=== PATIENT | male | born 1960 | race African-American/Black ===

== ENCOUNTER 2017-01-30 11:03 | Emergency (ER) | payer OTHER ==
--- NOTE | ~2017-01-30 | CT16 ---
[facility] A Service of [facility] RADIOLOGY TEXT RESULTS PATIENT: KAR LICONA LOCATION: [facility] : 58 UNIT #: [id number] AGE: [address]: ANNETTA CRUMP SEX: M ORDER DR: [id number] [facility] [address] [place], [place] [address] [id number] E MR#: [id number] Acc #: [id number] NAME: KAR LICONA : 1960 SEX: M STUDY DATE/TIME: 01/30/2017 12:06 UNIT: [facility] ROOM: STUDY DESCRIPTION: CT Angio Chest for PE Attending Physician: Annetta Crump Aprn Ordering Physician: Haris Hair M.D. Primary Care Physician: Serafin Posada M.D. MEDICAL IMAGING REPORT This report is preliminary unless electronic signature is present EXAM CT angio of the chest INDICATION Intermittent chest pain since 01/28/2017. TECHNIQUE Axial CT images were obtained from thoracic of the diaphragm following the administration of intravenous contrast material. Following this, 3D reformatted images were obtained. This CT exam was performed with one or more of the following radiation dose reduction techniques: automatic exposure control, adjustment of mA and/or kV according to patient size, and iterative reconstruction. FINDINGS No acute pulmonary thromboembolus is seen. 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 Measures 3.2 cm and distal descending thoracic aorta measures about 3.0 cm. It is stable when compared to prior study and there is no evidence of dissection. 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 Again, this is favored to be not significantly changed when compared to the exam from August of 2015. The thyroid gland, trachea, and esophagus appear within normal limits. There is some trace pericardial fluid. No pleural effusions are seen. Patient has some tree-in-bud infiltrates in both lungs. Which actually are probably not significantly changed when compared to August pleural fluid 2014. No new noncalcified pulmonary nodules or masses are identified. Mediastinal lymph nodes do not appear pathologically enlarged. I do not see any acute lung is within the upper abdomen. Review of bony windows does not demonstrate any aggressive osseous abnormalities. [facility]. [facility] A Service of [facility] RADIOLOGY TEXT RESULTS PATIENT: KAR LICONA LOCATION: [facility] : 58 UNIT #: [id number] AGE: [address]: ANNETTA CRUMP SEX: M ORDER DR: IMPRESSION 1. No acute pulmonary thromboembolus seen. 2. Thoracic aorta does show aneurysmal dilatation with the proximal descending thoracic aorta measuring up to 3.7 cm and the aortic root measuring up to 4.2 cm. This is stable when compared to August of 2015. I do not see any evidence of dissection. 3. Scattered tree-in-bud infiltrates seen throughout both lungs unchanged when compared to August of 2015. No new infiltrates are seen. Dictated by... Cherise Waters M.D. THIS IS AN ELECTRONICALLY VERIFIED REPORT Cherise Waters M.D. at 01/30/2017 5:07 PM AFF/aa TD: 01/30/2017 14:21 JOB #: [id number] MEDICAL IMAGING REPORT Page 1 of 1 COPY
--- NOTE | ~2017-01-30 | CR63 ---
[facility] A Service of [facility] RADIOLOGY TEXT RESULTS PATIENT: KAR LICONA LOCATION: [facility] : 58 UNIT #: [id number] AGE: [address]: ANNETTA CRUMP SEX: M ORDER DR: [id number] [place] [id number] [facility] [place], [place] [address] [id number] E MR#: [id number] Acc #: [id number] NAME: KAR LICONA : 1960 SEX: M STUDY DATE/TIME: 01/30/2017 10:40 UNIT: [facility] ROOM: STUDY DESCRIPTION: CR Chest 2 View Attending Physician: Annetta Crump Aprn Ordering Physician: Ed Blair Vela M.D. Primary Care Physician: Serafin Posada M.D. MEDICAL IMAGING REPORT This report is preliminary unless electronic signature is present EXAM PA and lateral chest. DATE 01/30/2017 HISTORY Chest pain, abdominal pain with nausea and vomiting and shortness of breath since Monday. Additional history of hypertension. COMPARISON PA and lateral chest, 02/12/2016. FINDINGS No acute airspace disease. Stable mild asymmetric elevation of the right diaphragm, unchanged. Heart size within normal limits. Pulmonary vascular distribution within normal limits. No pleural effusion or pneumothorax. No acute osseous abnormalities are identified. IMPRESSION No acute chest findings. No significant change compared to 02/12/2016. Dictated by... Velvet Harrison M.D. THIS IS AN ELECTRONICALLY VERIFIED REPORT Velvet Harrison M.D. at 01/31/2017 8:33 AM KAYLA/kike TD: 01/30/2017 12:42 JOB #: [id number] [facility] A Service of [facility] RADIOLOGY TEXT RESULTS PATIENT: KAR LICONA LOCATION: [facility] : 58 UNIT #: [id number] AGE: [address]: ANNETTA CRUMP SEX: M ORDER DR: MEDICAL IMAGING REPORT Page 1 of 1 COPY
--- NOTE | ~2017-01-30 | EKG ---
PATIENT: KAR LICONA UNIT #: [id number] Ventricular Rate: 86 BPM Atrial Rate: 86 BPM P-R Interval: 180 ms QRS Duration: 86 ms Q-T Interval: 366 ms QTC Calculation(Bezet): 437 ms P Troup: 8 degrees Calculated R Troup: -141 degrees Calculated T Troup: 5 degrees Diagnosis Line: Normal sinus rhythm Diagnosis Line: Indeterminate axis Diagnosis Line: Inferior infarct , age undetermined Diagnosis Line: Abnormal ECG Diagnosis Line: When compared with ECG of 12-FEB-2016 11:06, Diagnosis Line: No significant change was found Diagnosis Line: Confirmed by CAREN WILKINS MD ([id number]) on 01/30/2017 Diagnosis Line: 11:02:03 PM INTERPRETING MD: FRANKY HUMPHRIES
[2017-01-30 10:08] LABS: POC - CKMB 2.4 ng/mL (0.0-7.9); POC - TROPONIN <0.05 ng/mL (<=0.05)
[2017-01-30 10:27] LABS: BASOPHIL# 0.1 X10e3 (0-0.3); BASOPHIL% 0.5 % (0-2.5); EOSINOPHIL% 0.4 % (0.0-7.0); HEMATOCRIT 41.3 % (38.0-50.0); HEMOGLOBIN 13.8 gm/dL (13.0-16.0); LYMPHOCYTE# 2.5 X10e3 (1.0-3.5); LYMPHOCYTE% 20.6 % (17.0-45.0); MEAN CELL VOLUME 90.5 FL (83-96); MEAN CORPUSCULAR HEMOGLOBIN 30.3 PG (28-34); MEAN CORPUSCULAR HGB CONC 33.5 g/dL (30-36); MONOCYTE# 0.7 X10e3 (0-1.0); MONOCYTE% 5.8 % (3.0-12.0); NEUTROPHIL# 8.7 X10e3 (1.5-7.1); NEUTROPHIL% 72.7 % (40-75); PLATELET COUNT 269 X10e3 (140-420); RED BLOOD COUNT 4.57 X10e (3.90-5.60); RED CELL DISTRIBUTION WIDTH 14.4 % (11.0-15.5)
[2017-01-30 10:28] LABS: DIFF IND NO
[2017-01-30 10:45] LABS: INR 1.1; PARTIAL THROMBOPLASTIN TIME 32.2 SECONDS (23.5-31.3); PROTHROMBIN TIME (PATIENT) 12.1 SECONDS (9.6-11.5)
[2017-01-30 11:02] LABS: BILIRUBIN,TOTAL 0.7 mg/dL (0.2-2.0); BUN/CREATININE RATIO 14.28; CALCIUM SERUM 9.5 mg/dL (8.4-10.2); CREATININE SERUM 1.4 mg/dL (0.6-1.4); GLOM FILT RATE Estimated 64.2 mL/min (>60); POTASSIUM 3.2 mmol/L (3.5-5.1); PROTEIN TOTAL SERUM 8.2 g/dL (6.0-8.3)
[~2017-01-30 11:03] MED LIST: ALEVE PO; ATENOLOL25 MG PO; BACLOFEN10 MG PO; CARVEDILOL3.125 MG PO; COUMADIN5 MG PO; COUMADIN7.5 MG PO; HYDROCODON-ACE1 EAC9 PO; KETOPROFEN PO; LISINOPRIL-HCTZ1 T14 PO; LISINOPRIL10 MG PO; LISINOPRIL20 MG PO; MILK OF MAGNESIA PO; MOBIC15 MG PO; NORVASC10 MG PO; TRAMADOL HCL50 M1 PO; TYLENOL #3 PO; TYLENOL325 M1 PO
[2017-01-30 12:17] LABS: POC - CKMB 1.4 ng/mL (0.0-7.9); POC - TROPONIN <0.05 ng/mL (<=0.05)
== END 2017-01-30 13:53 | disposition home or self-care (01) ==
LOC: CED 11:03
PROVIDERS: Nurse Practitioner Family
DX: R09.1 Pleurisy (principal); I10 Essential (primary) hypertension; E78.5 Hyperlipidemia, unspecified; Z98.890 Other specified postprocedural states; Z79.899 Other long term (current) drug therapy
CPT/HCPCS: 36415; 71020; 71275; 80053; 82553; 83690; 84484; 85025; 85379; 85610; 85730; 93005; 96374; 96375; 99284; J2270; J2405; Q9967

== ENCOUNTER 2017-02-02 21:30 | Emergency (ER) | payer OTHER ==
--- NOTE | ~2017-02-02 | CT2 ---
[facility] A Service of [facility] & [facility] RADIOLOGY TEXT RESULTS PATIENT: KAR LICONA LOCATION: [facility] : 58 UNIT #: [id number] AGE: [address]: Misael Frank MD SEX: M ORDER DR: [id number] [facility] [address] [place], [place] [address] [id number] E MR#: [id number] Acc #: [id number] NAME: KAR LICONA : 1960 SEX: M STUDY DATE/TIME: 02/02/2017 22:32 UNIT: [facility] ROOM: STUDY DESCRIPTION: CT Abd and Pelv W Cont Attending Physician: Misael Frank M.D. Ordering Physician: Misael Frank M.D. Primary Care Physician: Serafin Posada M.D. MEDICAL IMAGING REPORT This report is preliminary unless electronic signature is present EXAM Abdomen and pelvis CT, 02/02 at 22:32 INDICATIONS Constipation for 1 week with associated diffuse abdominal pain which rates 4/10. TECHNIQUE Axial images were obtained through the abdomen and pelvis following IV contrast administration. Multiplanar reformats were obtained. This CT exam was performed with one or more of the following radiation dose reduction techniques: Automatic exposure control, adjustment of mA and/or kV according to patient size, and iterative reconstruction. FINDINGS ABDOMEN: Lung bases are unchanged from chest CT dated 01/30/2017. Gallbladder is normal. No biliary obstruction is seen. Unopacified GI tract is normal. Stool volume is normal in the colon. There is no bowel obstruction. IVC filter is present. Solid abdominal organs are normal. No free fluid or adenopathy. Patient has a duplicated IVC. PELVIS: Urinary bladder is normal. There is some streak artifact from a left hip arthroplasty. The unopacified GI tract is normal. The appendix is normal. There is degenerative disease and scoliosis in the lumbar spine. There is a fat-containing midline ventral wall hernia just above the umbilicus. The defect in the fascia measures 2.0 x 1.1 cm. IMPRESSION 1. No acute findings in the abdomen or pelvis. 2. Normal unopacified GI tract, including the appendix. Stool volume is normal, and there is no bowel obstruction. 3. Fat-containing ventral wall hernia above the umbilicus. 4. Status post IVC filter placement and left hip arthroplasty. [facility] A Service of [facility] & [facility] RADIOLOGY TEXT RESULTS PATIENT: KAR LICONA [id number] 58 UNIT #: [id number] AGE: [address]: Misael Frank MD SEX: M ORDER DR: Dictated by... Angel Musa Jr., M.D. THIS IS AN ELECTRONICALLY VERIFIED REPORT Angel Musa Jr., M.D. at 02/03/2017 5:57 AM KATHY/jona TD: 02/03/2017 03:07 JOB #: [id number] MEDICAL IMAGING REPORT Page 1 of 1 COPY
[2017-02-02 22:03] LABS: ALBUMIN SERUM 4.1 g/dL (3.5-5.0); BILIRUBIN, DIRECT 0.1 mg/dL (0.0-0.2); BILIRUBIN,INDIRECT 0.8 mg/dL (0.0-0.9); BILIRUBIN,TOTAL 0.9 mg/dL (0.2-2.0); BUN/CREATININE RATIO 17.27; CALCIUM SERUM 9.3 mg/dL (8.4-10.2); CREATININE SERUM 1.1 mg/dL (0.6-1.4); GLOM FILT RATE Estimated 85.9 mL/min (>60); POTASSIUM 3.6 mmol/L (3.5-5.1)
[2017-02-02 22:03] LABS: BASOPHIL# 0.1 X10e3 (0-0.3); BASOPHIL% 0.6 % (0-2.5); EOSINOPHIL% 0.1 % (0.0-7.0); HEMOGLOBIN 13.2 gm/dL (13.0-16.0); LYMPHOCYTE# 3.5 X10e3 (1.0-3.5); LYMPHOCYTE% 28.1 % (17.0-45.0); MEAN CELL VOLUME 89.8 FL (83-96); MEAN CORPUSCULAR HEMOGLOBIN 29.8 PG (28-34); MEAN CORPUSCULAR HGB CONC 33.1 g/dL (30-36); MEAN PLATELET VOLUME 7.3 FL (6.5-11.5); MONOCYTE# 1.1 X10e3 (0-1.0); MONOCYTE% 8.5 % (3.0-12.0); NEUTROPHIL# 7.8 X10e3 (1.5-7.1); NEUTROPHIL% 62.7 % (40-75); PLATELET COUNT 286 X10e3 (140-420); RED BLOOD COUNT 4.45 X10e (3.90-5.60); RED CELL DISTRIBUTION WIDTH 14.3 % (11.0-15.5); WHITE BLOOD COUNT 12.4 X10e3 (4.0-10.5)
[2017-02-02 22:04] LABS: DIFF IND NO
[2017-02-02 23:25] LABS: URINE SOURCE CLEAN CATCH
[2017-02-02 23:35] LABS: URINE APPEARANCE CLEAR; URINE BILIRUBIN NEG (NEG); URINE BLOOD NEG (NEG); URINE COLOR YELLOW; URINE GLUCOSE NEG (NEG); URINE KETONE TRACE (NEG); URINE LEUKOCYTE ESTERASE NEG (NEG); URINE NITRATE NEG (NEG); URINE PH 7.5 (5-8); URINE PROTEIN NEG (NEG); URINE SPECIFIC GRAVITY 1.027 (1.003-1.035)
[2017-02-02 23:36] LABS: CULTURE INDICATED? NO
== END 2017-02-03 00:13 | disposition home or self-care (01) ==
LOC: CED 21:30
PROVIDERS: Emergency Medicine
DX: R10.84 Generalized abdominal pain (principal); R11.0 Nausea; I10 Essential (primary) hypertension; Z98.890 Other specified postprocedural states
CPT/HCPCS: 36415; 74177; 80048; 80076; 81003; 82150; 83690; 85025; 96361; 96372; 96374; 99284; J0500; J2405; Q9967

== ENCOUNTER 2017-03-08 09:01 | Inpatient (IN) | payer OTHER ==
--- NOTE | ~2017-03-08 | DS ---
Unit #: [id number] #: [id number] Patient: KAR LICONA [id number] [address] [address] [id number] I MR#: [id number] NAME: KAR LICONA ROOM: 225 Age: 56 Sex: M Admission Date: 03/08/2017 : 1960 Discharge Date: 03/10/2017 Attending Physician: Angel Meredith M.D. Referring Physician: Self Referral-Refer Use Only Primary Care Physician: Serafin Posada M.D. DISCHARGE SUMMARY PRIMARY DIAGNOSIS Left ureteral calculus. PROCEDURES None. DISPOSITION Home. FOLLOWUP Followup in my office in one month with KUB. DISCHARGE MEDICATIONS Same as admission medications plus Percocet #30, 5/325 1-2 as needed for pain every 4-6 hours, tamsulosin 0.4 mg one as needed for colic, #10. HISTORY This 56-year-old man presented with left flank pain and a 4 mm distal left ureteral calculus. He was admitted for pain control and observed overnight on medical expulsive therapy. HOSPITAL COURSE The patient was initially evaluated in the emergency department, and observed on medical expulsive therapy. The following day, his pain was controlled but without nausea, vomiting, fever, or chills but the pain was still present. He did not wish to have the stone operated and continued expulsive therapy was undertaken for an additional day. On the day of discharge, he had had no pain overnight, although the stone had not been seen to pass, he was certainly well enough for discharge and is discharged with medication. He had some persistent recurrent colic and given the followup as noted in one month with KUB. Admission medications, did include, hydrochlorothiazide, lisinopril, Xarelto which was continued, baclofen, and hydrocodone 10s, Lipitor, Zantac, and amlodipine. Dictated by... Angel Meredith M.D. Unit #: [id number] #: [id number] Patient: KAR LICONA NANCIE/alis TD: 03/12/2017 14:47 JOB #: [id number] DISCHARGE SUMMARY Page 1 of 1 X Angel Meredith MD DISCHARGE SUMMARY
--- NOTE | ~2017-03-08 | HP ---
Unit #: [id number] #: [id number] Patient: KAR LICONA [id number] [facility] [address] [place], [place] [address] [id number] I MR#: [id number] NAME: KAR LICONA. ROOM: 96965 Age: 56 Sex: M Admission Date: 03/08/2017 : 1960 Attending Physician: Angel Meredith M.D. Referring Physician: Self Referral-Refer Use Only Primary Care Physician: Serafin Posada M.D. HISTORY AND PHYSICAL CHIEF COMPLAINT Left flank pain. HISTORY This pleasant 56-year-old man, with no prior history of stone disease, noted onset of left flank pain which was initially severe, somewhat less with medication last evening. He had initial nausea and vomiting but this has resolved. He has been evaluated in the [facility] Emergency Department and found to have a 4 mm stone obstructing the distal left ureter. He still feels as if he were "kicked by a mule." There has been no associated radiation, fever, chills, or voiding symptoms. He has no urological history. PAST MEDICAL HISTORY 1. Arthritis. 2. Hypertension. 3. Deep venous thrombosis with pulmonary thromboembolism treated last summer and with IVC filter placement. 4. COPD. PAST SURGICAL HISTORY 1. Left total hip arthroplasty. 2. Left knee replacement. MEDICATIONS On admission include: 1. Carvedilol. 2. Lisinopril. 3. Tramadol. 4. Baclofen. 5. [place] 7.5/325. 6. Tylenol. 7. Coumadin. 8. Milk of Magnesia. ALLERGIES None known. FAMILY HISTORY Negative for prostate cancer. SOCIAL HISTORY Nonsmoker. Unit #: [id number] #: [id number] Patient: KAR LICONA REVIEW OF SYSTEMS He denies other than the above and arthritic pains. PHYSICAL EXAMINATION GENERAL: On examination, the patient is a large -[place]aced[place] man of husky build. VITAL SIGNS: Afebrile with stable vital signs. Temperature 98.7 degrees, pulse 97, blood pressure 121/82, respirations 20. Height is 6 feet 2 inches tall, weight 286 pounds. HEENT: Unremarkable. LUNGS: Clear. CARDIAC: Rate and rhythm regular. ABDOMEN: Large, soft, full with mild left-sided tenderness currently. GENITALIA: Phallus normal circumcised. Testes normal descended. DIAGNOSTIC STUDIES LABORATORY: Include urinalysis showing 1+ leukocyte esterase, no nitrites, 3+ blood, no bacteria, 10-25 WBCs, innumerable RBCs. BUN 18, creatinine 1.5, glucose 147, eGFR 59.1. Hemoglobin 13.3, WBC 14.5. IMAGING: X-ray, CT scan of the abdomen and pelvis stone protocol shows the ureteral stone as noted with hydronephrosis. There is scatter from the hip but the stone appears fairly small. IMPRESSION 1. Small distal left ureteral stone likely to pass spontaneously. 2. Associated gross hematuria. PLAN Will admit for pain control with medical expulsive therapy and re-assess overnight. Dictated by Deondre Robertson/nilson TD: 03/08/2017 14:46 JOB #: [id number] CC: Serafin Posada M.D. HISTORY AND PHYSICAL Page 1 of 1 X Angel Meredith MD X HISTORY AND PHYSICAL
--- NOTE | ~2017-03-08 | CT4 ---
[facility] A Service of [facility] RADIOLOGY TEXT RESULTS PATIENT: KAR LICONA LOCATION: [facility] - : 58 UNIT #: [id number] AGE: [address]: Angel Meredith MD SEX: M ORDER DR: [id number] [facility] [address] [place], [place] [address] [id number] I MR#: [id number] Acc #: [id number] NAME: KAR LICONA : 1960 SEX: M STUDY DATE/TIME: 03/08/2017 11:41 UNIT: C2A ROOM: [facility] STUDY DESCRIPTION: CT Abd and Pelv Wo Cont Attending Physician: Angel Meredith M.D. Referring Physician: Self Referral-Refer Use Only Ordering Physician: Ed Doctor [id number] [facility] Primary Care Physician: Serafin Posada M.D. MEDICAL IMAGING REPORT This report is preliminary unless electronic signature is present EXAM Abdomen and pelvis CT without contrast HISTORY Left-sided renal colic and pain with urination of a sharp and burning nature beginning last evening. TECHNIQUE Axial images were obtained without contrast and compared with 02/02/2017. This CT examination was performed with one or more of the following radiation dose reduction techniques: automatic exposure control, adjustment of mA and/or kV according to patient size, and iterative reconstruction. FINDINGS The liver, spleen and pancreas are normal in size. The right kidney contains a punctate 1-2 mm nonobstructing stone in the midportion. The left kidney shows marked perinephric edema and moderate hydronephrosis. The left ureter is dilated down into the pelvis. There is a 4 mm stone at the left ureterovesical junction. No acute or inflammatory changes are seen elsewhere in the abdomen or pelvis. No distended bowel loops are seen. IMPRESSION Marked perinephric edema is seen on the left with moderate hydronephrosis. There is an obstructing 4 mm stone at the left ureterovesical junction. There is a punctate 1-2 mm nonobstructing right kidney stone. Dictated by... Angel Perry M.D. [facility] A Service of [facility] RADIOLOGY TEXT RESULTS PATIENT: KAR LICONA LOCATION: [place] [address] : 58 UNIT #: [id number] AGE: [address]: Angel Meredith MD SEX: M ORDER DR: THIS IS AN ELECTRONICALLY VERIFIED REPORT Angel Perry M.D. at 03/10/2017 12:40 PM RILEY/calvin TD: 03/08/2017 12:20 JOB #: [id number] MEDICAL IMAGING REPORT Page 1 of 1 COPY
[2017-03-08 09:56] LABS: BASOPHIL% 0.3 % (0-2.5); HEMATOCRIT 40.7 % (38.0-50.0); HEMOGLOBIN 13.3 gm/dL (13.0-16.0); LYMPHOCYTE% 6.8 % (17.0-45.0); MEAN CELL VOLUME 92.3 FL (83-96); MEAN CORPUSCULAR HEMOGLOBIN 30.1 PG (28-34); MEAN CORPUSCULAR HGB CONC 32.6 g/dL (30-36); MEAN PLATELET VOLUME 8.5 FL (6.5-11.5); MONOCYTE# 0.4 X10e3 (0-1.0); MONOCYTE% 2.9 % (3.0-12.0); PLATELET COUNT 247 X10e3 (140-420); RED BLOOD COUNT 4.41 X10e (3.90-5.60); RED CELL DISTRIBUTION WIDTH 14.4 % (11.0-15.5); WHITE BLOOD COUNT 14.5 X10e3 (4.0-10.5)
[2017-03-08 09:59] LABS: DIFF IND NO
[2017-03-08 10:03] LABS: URINE SOURCE CLEAN CATCH
[2017-03-08 10:11] LABS: URINE APPEARANCE TURBID; URINE BILIRUBIN NEG (NEG); URINE BLOOD 3+ (NEG); URINE COLOR RED; URINE GLUCOSE NEG (NEG); URINE KETONE NEG (NEG); URINE LEUKOCYTE ESTERASE 1+ (NEG); URINE NITRATE NEG (NEG); URINE PROTEIN 2+ (NEG); URINE SPECIFIC GRAVITY 1.021 (1.003-1.035); URINE UROBILINOGEN 0.2 MG/DL (NEG)
[2017-03-08 10:12] LABS: PROTHROMBIN TIME (PATIENT) 10.7 SECONDS (9.6-11.5)
[2017-03-08 10:16] LABS: CULTURE INDICATED? YES; U HYALINE CASTS AUWI 0-2 /[LPF]; URBCS1 AUWI INNUM /[HPF] (0-2); URINE BACTERIA AUWI NEG (NEGATIVE); URINE SQUAMOUS EPITHELIAL CELL NONE SEEN /[HPF]
[2017-03-08 10:36] LABS: ALBUMIN SERUM 4.7 g/dL (3.5-5.0); BILIRUBIN, DIRECT 0.1 mg/dL (0.0-0.2); BILIRUBIN,INDIRECT 0.5 mg/dL (0.0-0.9); BILIRUBIN,TOTAL 0.6 mg/dL (0.2-2.0); CALCIUM SERUM 9.6 mg/dL (8.4-10.2); CREATININE SERUM 1.5 mg/dL (0.6-1.4); GLOM FILT RATE Estimated 59.1 mL/min (>60); PROTEIN TOTAL SERUM 8.1 g/dL (6.0-8.3)
[2017-03-08] MEDS ORDERED: HYDROCHLOROTHIA25 MG PO (14:34)
[2017-03-08] MEDS ORDERED: LISINOPRIL20 MG PO (14:35)
[2017-03-08] MEDS ORDERED: BACLOFEN10 MG PO (14:35)
[2017-03-08] MEDS ORDERED: XARELTO20 MG PO (14:35)
[2017-03-08] MEDS ORDERED: HYDROCODON-ACE1 EAC5 PO (14:37)
[2017-03-08] MEDS ORDERED: LIPITOR20 MG PO (14:37)
[2017-03-08] MEDS ORDERED: ZANTAC150 MG PO (14:37)
[2017-03-08] MEDS ORDERED: AMLODIPINE BESY10 MG PO (14:38)
[2017-03-10] MEDS ORDERED: PERCOCET5/325 PO (11:58)
[2017-03-10] MEDS ORDERED: FLOMAX0.4 M1 PO (12:00)
== END 2017-03-10 13:50 | disposition home or self-care (01) | DRG 694 ==
LOC: CED 09:01 → C2A 13:10 → CED 13:10 → CEDOF 13:10 → CED 14:20 → CEDOF 16:00 → C2A 16:00 → CED 03-09 18:10 → C2A 03-09 18:10 → CEDOF 03-09 18:10 → C2A 03-10 13:50
PROVIDERS: Nurse Practitioner
DX: N13.2 Hydronephrosis with renal and ureteral calculous obstruction (principal); I10 Essential (primary) hypertension; M19.90 Unspecified osteoarthritis, unspecified site; J44.9 Chronic obstructive pulmonary disease, unspecified; Z86.718 Personal history of other venous thrombosis and embolism; Z96.642 Presence of left artificial hip joint; Z96.652 Presence of left artificial knee joint; R31.0 Gross hematuria
CPT/HCPCS: 36415; 74176; 80048; 80076; 81003; 83690; 85025; 85610; 87086; 96361; 96365; 96375; 99285; J0696; J1170; J2270; J2405

== ENCOUNTER 2017-07-06 23:39 | Emergency (ER) | payer OTHER ==
[~2017-07-06] VITALS: Ht 188 cm; Wt 136.5 kg
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
[~2017-07-06 23:39] MED LIST changes: +AMLODIPINE BESY10 MG PO; +FLOMAX0.4 M1 PO; +HYDROCHLOROTHIA25 MG PO; +HYDROCODON-ACE1 EAC5 PO; +LIPITOR20 MG PO; +PERCOCET5/325 PO; +XARELTO20 MG PO; +ZANTAC150 MG PO
== END 2017-07-07 06:58 | disposition home or self-care (01) ==
LOC: CED 23:39
DX: S13.9XXA Sprain of joints and ligaments of unspecified parts of neck, initial encounter (principal); S33.5XXA Sprain of ligaments of lumbar spine, initial encounter; Z79.899 Other long term (current) drug therapy; I10 Essential (primary) hypertension; E78.5 Hyperlipidemia, unspecified; Z98.890 Other specified postprocedural states; V49.49XA Driver injured in collision with other motor vehicles in traffic accident, initial encounter
CPT/HCPCS: 72040; 72100; 72125; 99284